=== PATIENT | female | born 1990 | race Hispanic/Latino ===

== ENCOUNTER 2017-06-12 13:16 | Emergency (ER) | payer SELFPAY ==
[2017-06-12] MEDS ORDERED: Lidocaine 1% w/Epinephrine 1:100K 20 ML VIAL ONE (14:32)
--- NOTE | 2017-06-12 15:16 | RAD ---
THREE VIEWS PARANASAL SINUSES: Date: 06-12-17 History: Patient hit in eye with softball. Laceration above left eye. FINDINGS: Metallic densities are seen anterior to the mandible as well as overlying the nose, likely related to external jewelry. No fracture is appreciated. Visualized paranasal sinuses are clear. No other findi ngs. IMPRESSION: No fracture is visualized. POS: [facility]
[2017-06-12] MEDS ORDERED: Bacitracin Zinc 1 Packet ONE (15:31)
== END 2017-06-12 15:38 | disposition home or self-care (01) ==
LOC: ERS 13:16
DX: S01.112A Laceration without foreign body of left eyelid and periocular area, initial encounter (principal); F17.210 Nicotine dependence, cigarettes, uncomplicated; W21.03XA Struck by baseball, initial encounter; Y93.64 Activity, baseball
CPT/HCPCS: 12011; 70150; J2001

== ENCOUNTER 2017-12-04 07:22 | Day surgery (SDC) | payer SELFPAY ==
[2017-12-04 07:48] LABS: #Basophils 0.1 thou/uL (0.0-0.2); #Eosinphils 0.2 thou/uL (0.0-0.7); #Lymphocytes 2.6 thou/uL (1.20-3.40); #Monocytes 0.7 thou/uL (0.11-0.59); #Neutrophils 10.9 thou/uL (1.40-6.50); %Basophils 0.7 % (0.0-1.0); %Eosinophils 1.2 % (0.0-10.0); %Lymphocytes 17.7 % (21.0-51.0); %Monocytes 4.8 % (0.0-10.0); %Neutrophils 75.6 % (42.0-75.0); Hemoglobin 14.9 g/dL (12.0-16.0); Mean Corpuscular HGB CONC 32.9 g/dL (32.0-36.0); Mean Corpuscular Hemoglobin 31.2 pg (27.0-31.0); Mean Corpuscular Volume 94.8 fL (78.0-98.0); Mean Platelet Volume 8.8 fL (7.4-10.4); Platelet Count 263 thou/uL (130-400); RBC Distribution Width 11.5 % (11.5-14.5); Red Blood Cell (RBC) Count 4.76 mill/uL (4.20-5.40); White Blood Cell (WBC) Count 14.5 thou/uL (4.8-10.8)
[2017-12-04 08:11] LABS: Bilirubin Negative (Negative); Blood, Urine Negative (Negative); Clarity CLEAR (Clear); Glucose, Urine (Dipstick) Negative (Negative); Leukocyte Negative (Negative); Nitrite Negative (Negative); Protein, Urine (Dipstick) Negative (Neg-Trace); Specific Gravity, Urine 1.015 (1.002-1.036); Urobilinogen 0.2 mg/dL (0.2-1.0)
[2017-12-04 08:11] LABS: ALT (SGPT) 11 U/L (8-55); AST (SGOT) 16 U/L (5-34); Albumin 4.4 g/dL (3.5-5.0); Alkaline Phosphatase 82 U/L (40-150); Anion Gap 11 mmol/L (10-20); BUN (Urea Nitrogen) 12 mg/dL (7.0-18.7); Bilirubin, Total 0.4 mg/dL (0.2-1.2); Calc. Creatinine Clearance 0 mL/min (70-130); Calcium 9.4 mg/dL (7.8-10.44); Carbon Dioxide 22 mmol/L (22-29); Chloride 108 mmol/L (98-107); Estimated GFR-MDRD 84; Globulin 3.2 g/dL (2.4-3.5); Glucose 108 mg/dL (70-105); Lipase 20 U/L (8-78); Protein, Total 7.6 g/dL (6.0-8.3); Sodium 137 mmol/L (136-145)
[2017-12-04] MEDS ORDERED: Mag-Al 1200 mg/1200 mg/30 ML UDCUP ONE (08:13)
[2017-12-04] MEDS ORDERED: Ondansetron ODT 4 MG TAB ONE (08:13)
[2017-12-04] MEDS ORDERED: HYDROcodone/Acetaminophen 10/325 mg Tablet ONE (08:13)
[2017-12-04 08:18] LABS: Pregnancy Test - Urine (BHCG) Negative (Negative); Pregu Control Background? CLEAR/WHITE (CLR/WHITE); Pregu Control Bar Appear? YES (CONTROL BAR); Specific Gravity 1.015 (1.002-1.036)
[2017-12-04] MEDS ORDERED: ISOVUE-370 76%-LOCM 1 ML ONE (09:40)
[2017-12-04] MEDS ORDERED: Fluconazole 100 MG TAB PO SCH (10:00)
--- NOTE | 2017-12-04 10:36 | CT ---
CT OF ABDOMEN AND PELVIS PERFORMED WITH INTRAVENOUS CONTRAST ENHANCEMENT: History: Stabbing abdominal pain, onset this morning. Comparison: 10-28-16 FINDINGS: The lung bases are clear. Bilateral breast augmentation is incidentally noted. The liver, spleen, pancreas, and gallbladder regions all appear unremarkable. Right and left adrenal glands and right and left kidneys are normal in size. There is no significant periaortic or mesenteric adenopathy. A small fat containing periumbilical hernia is seen. CT PELVIS PERFORMED WITH INTRAVENOUS CONTRAST ENHANCEMENT: The appendix is upper limits of normal in size. There is air within the appendix. Questionable minima l fat stranding in this region is an equivocal finding. There is no free fluid or significant adenopa thy or mass. IMPRESSION: 1. Small fat containing periumbilical hernia. 2. Borderline size appendix, however, there is air within the appendix. There is an equivocal finding of some minimal fat stranding in this region although I feel it is probably still within normal limi ts. Clinical correlation as to whether the patient has pain in this region. I cannot totally exclude the possibility of very early appendicitis change given the borderline size of the appendix, which harrison s a more prominent appearance as compared to the 10-29-16 study. POS: [facility]
[2017-12-04] MEDS ORDERED: ePHEDrine/0.9% NaCl/PF SYRINGE 50 mg/10 ml ONE (11:51)
[2017-12-04] MEDS ORDERED: Ketorolac Tromethamine 30 MG/ML VIAL ONE (11:51)
[2017-12-04] MEDS ORDERED: PROPOFOL 200 MG/20 ML VIAL ONE (11:51)
[2017-12-04] MEDS ORDERED: Dexamethasone 20 MG/5 ML VIAL ONE (11:51)
[2017-12-04] MEDS ORDERED: Lidocaine 1% PF 5 ML VIAL ONE (11:51)
[2017-12-04] MEDS ORDERED: Ondansetron HCl/PF 4 MG/2 ML Vial ONE ×2 (11:51→14:21)
[2017-12-04] MEDS ORDERED: Glycopyrrolate 0.2 MG/ML 5 ML SYRINGE ONE (11:51)
[2017-12-04] MEDS ORDERED: Fentanyl 100 MCG/2 ML VIAL ONE ×3 (11:52→16:10)
[2017-12-04] MEDS ORDERED: cefOXitin 2 GM in Sodium Chloride 0.9% 100 ML IVPB SCH (12:00)
[2017-12-04] MEDS ORDERED: Bupivacaine/Epinephrine 0.25% 30 ML VIAL ONE (12:20)
--- NOTE | 2017-12-04 12:29 | HP ---
HISTORY OF PRESENT ILLNESS: Ms. Allen is a 27-year-old woman who presented to emergency de partment today with insidious onset periumbilical abdominal pain which seemed to have radiated to her epigastrium. The pain started at 0430 hours this morning. This pain was associated with some nause a, but no emesis. The patient denies any fevers or chills. Pain at maximum intensity was rated at 9/10. Pain is now mostly in the right lower quadrant. She de nies any diarrhea or any other change in her bowel habits. Last meal was last night for dinner. 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 SURGICAL HISTORY: Pertinent for x3. SOCIAL HISTORY: She is . She admits to smoking half pack of cigarette per day, has done so f or approximately 7 years. She also admits to occasional intake of ethanol in moderate amounts. She denies any illicit drug abuse. PREHOSPITALIZATION MEDICATIONS: Ferrous sulfate 325 mg p.o. b.i.d. She takes acetaminophen and ibup rofen as needed for pain. REVIEW OF SYSTEMS: A 10-point review of systems essentially unremarkable except for as stated in pas t medical history and chief complaint. PHYSICAL EXAMINATION: GENERAL: This is a 27-year-old G3, P3, who is in no acute distress at the time of my evaluation. HEENT: Reveals normocephalic and atraumatic. Pupils are equal, round, and reactive to light and acc ommodation. Extraocular muscles are intact bilaterally. No sclerae icterus is present. Oral mucosa is pink and moist. She has no lesions noted. NECK: Supple. No palpable lymphadenopathy or thyromegaly present. HEART: Reveals regular rate and rhythm. She has no murmurs or gallops auscultated. LUNGS: Clear to auscultation bilaterally. Her breathing is regular and unlabored. ABDOMEN: Soft, moderately distended. She has right lower quadrant tenderness to palpation with a po sitive Rovsing sign. Liver and spleen nonpalpable below costal margin. EXTREMITIES: Reveals 2+ radial and pedal pulses bilaterally. No ankle edema is present. NEUROLOGIC: Reveals no focal deficits present. PERTINENT LABORATORY DATA: Today includes a CBC with 14,500 white blood cells, hemoglobin and hemato crit is 14.9 and 45.1 respectively. Platelet count is 263,000. Metabolic profile: Sodium 137, pota ssium 4.0, chloride is 108, bicarbonate 22, BUN 12, creatinine 0.81, glucose 108. Total bilirubin 0. 4, AST and ALT 16 and 11 respectively. Lipase is normal at 20. Urinalysis essentially unremarkable. I have personally reviewed the CT scan of the abdomen and pelvi s which is remarkable. This is remarkable for dilated appendix with mild periappendiceal fat strandi ng. There is no pneumoperitoneum or free fluid present. IMPRESSION: Acute appendicitis, likely retrocecal based on the clinical examination. PLAN: Laparoscopic appendectomy. The above findings and plan have been discussed with the patient a nd at bedside. I have advised the patient of the risk and benefits of the proposed surgery t o include, but not limited to bleeding, infection, injury to bowel or surrounding structures. The ryan aden indicates understanding of information I provided her today. I have answered her questions. T he patient has granted consent for this admission and surgical intervention.
[2017-12-04] MEDS ORDERED: Sodium Chloride 0.9% 10 ML ONE (12:42)
[2017-12-04] MEDS ORDERED: Sodium Chloride 0.9% 100 ML ONE ×2 (12:42→12:50)
[2017-12-04] MEDS ORDERED: cefOXitin 2 GM VIAL ONE (12:50)
[2017-12-04] MEDS ORDERED: Midazolam HCl 2 mg/2 ml Vial ONE (12:50)
[2017-12-04] MEDS ORDERED: Morphine 2 MG/ML SYRINGE ONE (17:01)
[2017-12-04] MEDS ORDERED: Promethazine HCl 25 MG/ML VIAL ONE (17:01)
[2017-12-04] MEDS ORDERED: HYDROcodone/Acetaminophen 5/325 mg Tablet ONE (17:22)
--- NOTE | 2017-12-04 18:12 | OP ---
DATE OF OPERATION: 12/04/2017 PREOPERATIVE DIAGNOSIS: Acute appendicitis. POSTOPERATIVE DIAGNOSIS: Acute appendicitis. PROCEDURE PERFORMED: Laparoscopic appendectomy. SURGEON: Morris Brumfield D.O. ANESTHESIA: General endotracheal. ESTIMATED BLOOD LOSS: 5 mL FLUIDS GIVEN: 200 mL crystalloids. SPONGE AND INSTRUMENT COUNT: Certified as correct x2. COMPLICATIONS: None apparent at the time of operation. INDICATIONS FOR PROCEDURE: A 27-year-old woman presented with insidious onset abdominal pain. Clini dedrick and radiographic examination was consistent with acute appendicitis for which the patient was bro ught to the operating room for appendectomy. FINDINGS: Consistent with inflamed retrocecal appendix with no evidence of perforation. DESCRIPTION OF PROCEDURE: Informed consent obtained from the patient who was brought to the operatin g room and placed in supine position. Following general anesthesia, abdomen is sterilely prepped and draped in usual fashion. The skin below the umbilicus was infiltrated with 0.25% Marcaine with epin ephrine and a curvilinear infraumbilical incision was made using an 11 scalpel. Umbilical stalk gras ped with Flo's and elevated. Veress needle was inserted through this incision and placed the selwyn toneal cavity through which the abdomen was insufflated with 3 liters of CO2 gas. Intraabdominal pre ssure noted at 2 mmHg. Following abdominal insufflation, Veress needle was removed and replaced with a 5 mm trocar introduced using the Visiport under laparoscopy. Laparoscopy confirmed proper placeme nt of the port, no injuries to underlying structures. Additional laparoscopy reveals the right lower quadrant partially encased by omental adhesions. Under laparoscopy, a 5 mm suprapubic and a 12 mm l eft lower quadrant ports were placed after the overlying skin were infiltrated with 0.25% Marcaine wi th epinephrine and appropriate incision was made. The patient was placed in a Trendelenburg position , rotated to her left. I used a Prestige grasper to bluntly take down omental adhesions to expose re trocecal appendix, which is not perforated. Endo Butler forceps was introduced through the suprapub ic port site grasping the appendix which was elevated. I used a [place] dissector to create a rent through the mesoappendix at the base. Through this defect, Endo-GAYATHRI with a blue load was introduced and appendix was divided at appendicocecal junction. Using a white load of the Endo-GAYATHRI, the mesoapp endix was also divided at the base. The appendix itself was delivered of the abdominal cavity using an EndoCatch. Operative site was inspected for good hemostasis. Finding no other pathology, laparos copy was terminated. Fascia of the left lower quadrant port was closed using 0 Vicryl suture and End o closure device under laparoscopy. Abdomen was desufflated. Remainder of the ports and instruments were removed and accounted for. Skin incision was closed using 4-0 Monocryl suture in subcuticular fashion. Dermabond was applied over the incisional closure. The patient tolerated the operation wit hout any apparent complication and was returned to recovery room in satisfactory condition.
== END 2017-12-04 19:00 | disposition home or self-care (01) ==
LOC: ERS 07:22 → SDC 12:07
PROVIDERS: ATTEND Surgery
PROC: 0DTJ4ZZ Resection of Appendix, Percutaneous Endoscopic Approach (ICD-10-PCS; principal; 2017-12-04)
DX: K35.80 Unspecified acute appendicitis (principal)
CPT/HCPCS: 36415; 74177; 80053; 81003; 81025; 83690; 85025; 87480; 87510; 87660; 88304; 96374; 96375; 99406; J0131; J0694; J1100; J1885; J2001; J2250; J2270; J2405; J2550; J2704; J3010; J7050; Q0162

== ENCOUNTER 2018-10-09 23:12 | Emergency (ER) | payer SELFPAY ==
[2018-10-09] MEDS ORDERED: Ketorolac Tromethamine 30 MG/ML VIAL ONE (23:17)
[2018-10-09] MEDS ORDERED: Ondansetron PF 4 MG/2 ML Vial ONE (23:17)
[2018-10-09 23:33] LABS: #Basophils 0.1 thou/uL (0.0-0.2); #Eosinphils 0.2 thou/uL (0.0-0.7); #Lymphocytes 2.5 thou/uL (1.20-3.40); #Monocytes 0.7 thou/uL (0.11-0.59); #Neutrophils 6.1 thou/uL (1.40-6.50); %Basophils 1.2 % (0.0-1.0); %Eosinophils 1.8 % (0.0-10.0); %Lymphocytes 26.2 % (21.0-51.0); %Monocytes 6.9 % (0.0-10.0); %Neutrophils 63.9 % (42.0-75.0); Hemoglobin 12.8 g/dL (12.0-16.0); Mean Corpuscular HGB CONC 33.5 g/dL (32.0-36.0); Mean Corpuscular Hemoglobin 31.2 pg (27.0-31.0); Mean Corpuscular Volume 93.4 fL (78.0-98.0); Mean Platelet Volume 8.8 fL (7.4-10.4); Platelet Count 247 thou/uL (130-400); RBC Distribution Width 11.1 % (11.5-14.5); White Blood Cell (WBC) Count 9.5 thou/uL (4.8-10.8)
[2018-10-09 23:54] LABS: ALT (SGPT) 12 U/L (8-55); AST (SGOT) 14 U/L (5-34); Albumin 3.9 g/dL (3.5-5.0); Alkaline Phosphatase 78 U/L (40-150); Anion Gap 11 mmol/L (10-20); BUN (Urea Nitrogen) 10 mg/dL (7.0-18.7); Bilirubin, Total Less than 0.2 mg/dL (0.2-1.2); Calc. Creatinine Clearance 0 mL/min (70-130); Calcium 8.7 mg/dL (7.8-10.44); Carbon Dioxide 24 mmol/L (22-29); Chloride 106 mmol/L (98-107); Estimated GFR-MDRD 81; Globulin 2.9 g/dL (2.4-3.5); Glucose 109 mg/dL (70-105); Protein, Total 6.8 g/dL (6.0-8.3); Sodium 137 mmol/L (136-145)
[2018-10-10 00:01] LABS: Bacteria/HPF None Seen HPF (None Seen); Bilirubin Negative (Negative); Blood, Urine 1+ (Negative); Clarity Clear (Clear); Glucose, Urine (Dipstick) Normal (Negative); Leukocyte Negative Leu/uL (Negative); Nitrite Negative (Negative); Protein, Urine (Dipstick) Negative (Neg-Trace); Urobilinogen Normal mg/dL (Less than 2); WBC/HPF 0-3 HPF (0-3)
[2018-10-10 00:08] LABS: BHCG - Serum Negative (NEGATIVE); Pregs Control Background? CLEAR/WHITE (CLR/WHITE); Pregs Control Bar Appear? YES (CONTROL BAR)
[2018-10-10] MEDS ORDERED: Morphine 4 MG/ML VIAL ONE (00:42)
== END 2018-10-10 03:19 | disposition home or self-care (01) ==
LOC: ERS 23:12
DX: N23 Unspecified renal colic (principal); F17.210 Nicotine dependence, cigarettes, uncomplicated; Z79.891 Long term (current) use of opiate analgesic; Z87.442 Personal history of urinary calculi
CPT/HCPCS: 80053; 81003; 81015; 84703; 85025; 96361; 96374; 96375; J1885; J2270; J2405

== ENCOUNTER 2019-08-04 09:03 | Outpatient (CLI) | payer OTHER ==
--- NOTE | 2019-08-04 14:02 | MRI ---
EXAM: RIGHT WRIST MRI WITHOUT IV CONTRAST: History: Right wrist sprain, pain following a fall at work. FINDINGS: No evidence for abnormal marrow signal to suggest fracture or acute stress injury or avascular necros is. The scapholunate ligament region appears unremarkable. No evidence for disassociation. Triangular fibrocartilage complex appears unremarkable. No evidence for an associated tear. Visualized tendons are unremarkable. No evidence for tendon sheath fluid. IMPRESSION: No significant acute process. Intact appearing scapholunate ligament. Intact triangular fibrocartilag e complex. No other significant acute internal derangement. POS: [facility]
== END 2019-08-04 09:04 | disposition home or self-care (01) ==
LOC: BICMRI 09:03
PROVIDERS: ATTEND Family Medicine
DX: M65.9 Synovitis and tenosynovitis, unspecified (principal); S63.501D Unspecified sprain of right wrist, subsequent encounter

== ENCOUNTER 2020-07-14 08:39 | Emergency (ER) | payer SELFPAY ==
[2020-07-14 09:30] LABS: #Eosinphils 0.1 thou/uL (0.0-0.7); #Lymphocytes 1.2 thou/uL (1.20-3.40); #Monocytes 0.5 thou/uL (0.11-0.59); #Neutrophils 1.8 thou/uL (1.40-6.50); %Basophils 0.6 % (0.0-1.0); %Eosinophils 3.4 % (0.0-10.0); %Lymphocytes 32.5 % (21.0-51.0); %Monocytes 12.6 % (0.0-10.0); %Neutrophils 50.9 % (42.0-75.0); Hemoglobin 13.8 g/dL (12.0-16.0); Mean Corpuscular HGB CONC 34.2 g/dL (32.0-36.0); Mean Corpuscular Hemoglobin 32.8 pg (27.0-31.0); Mean Corpuscular Volume 95.8 fL (78.0-98.0); Mean Platelet Volume 9.2 fL (7.4-10.4); Platelet Count 177 thou/uL (130-400); RBC Distribution Width 11.3 % (11.5-14.5); Red Blood Cell (RBC) Count 4.23 mill/uL (4.20-5.40); White Blood Cell (WBC) Count 3.6 thou/uL (4.8-10.8)
[2020-07-14 09:51] LABS: ALT (SGPT) 14 U/L (8-55); AST (SGOT) 17 U/L (5-34); Albumin 3.9 g/dL (3.5-5.0); Alkaline Phosphatase 74 U/L (40-110); Anion Gap 12 mmol/L (10-20); BUN (Urea Nitrogen) 9 mg/dL (7.0-18.7); Bilirubin, Total 0.3 mg/dL (0.2-1.2); Calc. Creatinine Clearance 0 mL/min (70-130); Calcium 8.8 mg/dL (7.8-10.44); Carbon Dioxide 22 mmol/L (22-29); Chloride 110 mmol/L (98-107); Globulin 2.8 g/dL (2.4-3.5); Glucose 105 mg/dL (70-105); Potassium 3.8 mmol/L (3.5-5.1); Protein, Total 6.7 g/dL (6.0-8.3); Sodium 140 mmol/L (136-145)
[2020-07-14 13:56] LABS: SARS-CoV-2 PCR by NAA DETECTED (NotDetected)
== END 2020-07-14 11:16 | disposition home or self-care (01) ==
LOC: ERS 08:39
DX: U07.1 COVID-19 (principal); Z87.442 Personal history of urinary calculi; F17.210 Nicotine dependence, cigarettes, uncomplicated
CPT/HCPCS: 36415; 71045; 80053; 84484; 85025; 87635; 93005; J7620; U0003; U0005

== ENCOUNTER 2022-06-10 18:41 | Emergency (ER) | payer SELFPAY, OTHER ==
[2022-06-10] MEDS ORDERED: Ondansetron PF 4 MG/2 ML Vial ONE (19:00)
[2022-06-10 19:12] LABS: #Basophils 0.1 thou/uL (0.0-0.2); #Eosinphils 0.1 thou/uL (0.0-0.7); #Lymphocytes 2.8 thou/uL (1.20-3.40); #Monocytes 0.6 thou/uL (0.11-0.59); %Basophils 0.9 % (0.0-1.0); %Eosinophils 1.5 % (0.0-10.0); %Lymphocytes 29.4 % (21.0-51.0); %Monocytes 5.8 % (0.0-10.0); %Neutrophils 62.3 % (42.0-75.0); Hemoglobin 13.9 g/dL (12.0-16.0); Mean Corpuscular HGB CONC 33.5 g/dL (32.0-36.0); Mean Corpuscular Hemoglobin 32.2 pg (27.0-31.0); Platelet Count 223 10x3/uL (130-400); RBC Distribution Width 11.4 % (11.5-14.5); Red Blood Cell (RBC) Count 4.32 mill/uL (4.20-5.40); White Blood Cell (WBC) Count 9.7 10x3/uL (4.8-10.8)
[2022-06-10 19:21] LABS: BHCG - Serum Negative (NEGATIVE); Pregs Control Background? CLEAR/WHITE (CLR/WHITE); Pregs Control Bar Appear? YES (CONTROL BAR)
[2022-06-10 19:33] LABS: ALT (SGPT) 14 U/L (8-55); AST (SGOT) 16 U/L (5-34); Albumin 4.2 g/dL (3.5-5.0); Alkaline Phosphatase 84 U/L (40-110); Anion Gap 13 mmol/L (10-20); BUN (Urea Nitrogen) 19 mg/dL (7.0-18.7); Bilirubin, Total 0.2 mg/dL (0.2-1.2); Calc. Creatinine Clearance 0 mL/min (70-130); Calcium 8.8 mg/dL (7.8-10.44); Carbon Dioxide 20 mmol/L (22-29); Chloride 110 mmol/L (98-107); Estimated GFR 89; Globulin 3.1 g/dL (2.4-3.5); Glucose 94 mg/dL (70-105); Potassium 3.9 mmol/L (3.5-5.1); Protein, Total 7.3 g/dL (6.0-8.3); Sodium 139 mmol/L (136-145)
== END 2022-06-10 21:33 | disposition home or self-care (01) ==
LOC: ERS 18:41
DX: S09.90XA Unspecified injury of head, initial encounter (principal); R55 Syncope and collapse; F17.210 Nicotine dependence, cigarettes, uncomplicated; Y04.0XXA Assault by unarmed brawl or fight, initial encounter
CPT/HCPCS: 36415; 70450; 71045; 80053; 84703; 85025; 93005; 96361; 96374; J2405

== ENCOUNTER 2024-01-28 17:38 | Emergency (ER) | payer SELFPAY, OTHER | END 2024-01-28 20:53 | disposition home or self-care (01) | LOC: ERS 17:38 | DX: J06.9 Acute upper respiratory infection, unspecified (principal); J40 Bronchitis, not specified as acute or chronic; Z87.891 Personal history of nicotine dependence | CPT/HCPCS: 71045; 87081; 87428; 87430 ==

== ENCOUNTER 2025-02-03 10:52 | Outpatient (CLI) | payer SELFPAY, OTHER | END 2025-02-03 10:53 | disposition home or self-care (01) | LOC: SCSMRI 10:52 | PROVIDERS: ATTEND Nurse Practitioner Family | DX: M25.561 Pain in right knee (principal) ==